=== PATIENT | male | born 1985 | race Caucasian/White ===

== ENCOUNTER 2018-07-09 15:16 | Emergency (ER) | payer MEDICAID ==
[~2018-07-09] VITALS: Wt 77.2 kg
[~2018-07-09 15:16] MED LIST: IBUP-1542 PO; LORA-441 PO; LORA1TAB PO; NAPR-985 PO; TRAM50TA2 PO
[2018-07-09] MEDS ORDERED: SOD CHLORIDE 0.9% 500 ML IV STA (16:10)
[2018-07-09] MEDS ORDERED: KETOROLAC 15 MG INJ IV STA (16:10)
[2018-07-09] MEDS ORDERED: ENALAPRILAT 1.25 MG INJ IV ONE (16:30)
[2018-07-09] MEDS ORDERED: IBUP-1542 PO (17:07)
[2018-07-09] MEDS ORDERED: HYDR25TA6 PO (17:10)
--- NOTE | 2018-07-09 17:19 | ERD ---
ER Documentation Chief Complaint Chief Complaint palpitations and cp HPI 32-year-old man presents with intermittent palpitations and sharp nonexertional nonradiating chest pain beginning this morning. Last for a few seconds intermit tently all morning and afternoon. He denies cough, no fevers or chills, no shortness of breath, no dizziness or loss of consciousness, no nausea. Patient denies history of hypertension or other medical conditions ROS All systems reviewed and are negative except as per history of present illness. Medications Home Meds Active Scripts Hydrochlorothiazide* (Hydrochlorothiazide*) 25 Mg Tab, 25 MG PO DAILY, #30 TAB Prov:PRABHA CHAND MD 07/09/18 Ibuprofen* (Motrin*) 600 Mg Tab, 600 MG PO Q8 PRN for PAIN AND/OR INFLAMMATION, #30 TAB Prov:PRABHA CHAND MD 07/09/18 Naproxen* (Naprosyn*) 500 Mg Tablet, 500 MG PO BID PRN for PAIN AND/OR INFLAMMATION, #30 TAB Prov:COLLIN CHRISTIANSON PA-C 04/26/16 Lorazepam* (Ativan*) 0.5 Mg Tablet, 0.5 MG PO Q8, #10 TAB Prov:COURT LICEA 03/31/16 Tramadol HCl (Tramadol HCl) 50 Mg Tablet, 50 MG PO Q6 PRN for SEVERE PAIN LEVEL 7-10, #20 TAB Prov:ISABELA CROUCH NP 03/08/16 Ibuprofen* (Motrin*) 600 Mg Tab, 600 MG PO Q6H PRN for PAIN AND OR ELEVATED TEMP, #30 TAB Prov:SELINA PETERS PA-C 02/26/16 Lorazepam* (Lorazepam*) 1 Mg Tablet, 1 MG PO Q8, #10 TAB Prov:ALBA DUBON PA-C 01/05/16 Allergies Allergies: Coded Allergies: No Known Allergy (Unverified , 12/22/15) PMhx/Soc Anxiety Medical and Surgical Hx: pt denies Medical Hx, pt denies Surgical Hx History of Surgery: No Anesthesia Reaction: No Hx Neurological Disorder: No Hx Respiratory Disorders: No Hx Cardiac Disorders: No Hx Psychiatric Problems: No Hx Miscellaneous Medical Probl: No Hx Alcohol Use: Yes (SOCIAL ) Hx Substance Use: No Hx Tobacco Use: No Smoking Status: Never smoker FmHx Family History: No diabetes Physical Exam Vitals Vital Signs Date Temp Pulse Resp B/P (MAP) Pulse Ox O2 O2 Flow FiO2 Time Delivery Rate 07/09/18 97.7 112 20 158/96 98 15:18 (116) Physical Exam Const: No acute distress, anxious, afebrile Head: Atraumatic Eyes: Normal Conjunctiva ENT: Normal External Ears, Nose and Mouth. Neck: Full range of motion. No meningismus. Resp: Clear to auscultation bilaterally Cardio: Tachycardic and regular Abd: Soft, non tender, non distended. Skin: No petechiae or rashes Back: No midline or flank tenderness Ext: No cyanosis, or edema Neur: Awake and alert x3, no focal deficits or facial asymmetry, moving all extremities Psych: Appears anxious Result Diagram: 07/09/18 1625 07/09/18 1625 Results 24 hrs Laboratory Tests Test 07/09/18 16:25 White Blood Count 8.2 10^3/ul Red Blood Count 5.15 10^6/ul Hemoglobin 15.9 g/dl Hematocrit 46.4 % Mean Corpuscular Volume 90.1 fl Mean Corpuscular Hemoglobin 30.9 pg Mean Corpuscular Hemoglobin Concent 34.3 g/dl Red Cell Distribution Width 11.6 % Platelet Count 216 10^3/UL Mean Platelet Volume 10.6 fl Immature Granulocytes % 0.400 % Neutrophils % 66.8 % Lymphocytes % 19.6 % Monocytes % 11.6 % Eosinophils % 1.1 % Basophils % 0.5 % Nucleated Red Blood Cells % 0.0 /100WBC Immature Granulocytes # 0.030 10^3/ul Neutrophils # 5.5 10^3/ul Lymphocytes # 1.6 10^3/ul Monocytes # 1.0 10^3/ul Eosinophils # 0.1 10^3/ul Basophils # 0.0 10^3/ul Nucleated Red Blood Cells # 0.0 10^3/ul Sodium Level 144 mmol/L Potassium Level 4.4 mmol/L Chloride Level 102 mmol/L Carbon Dioxide Level 29 mmol/L Anion Gap 13 Blood Urea Nitrogen 15 mg/dl Creatinine 0.85 mg/dl Est Glomerular Filtrat Rate mL/min > 60 mL/min Glucose Level 109 mg/dl Calcium Level 9.9 mg/dl Total Bilirubin 0.1 mg/dl Direct Bilirubin 0.00 mg/dl Indirect Bilirubin 0.1 mg/dl Aspartate Amino Transf (AST/SGOT) 66 IU/L Alanine Aminotransferase (ALT/SGPT) 111 IU/L Alkaline Phosphatase 71 IU/L Troponin I < 0.012 ng/ml Total Protein 8.3 g/dl Albumin 4.9 g/dl Globulin 3.40 g/dl Albumin/Globulin Ratio 1.44 Lipase 106 U/L Current Medications Medications Dose Sig/Sasha Start Time Status Last (Trade) Ordered Route PRN Stop Time Admin Dose Reason Admin Sodium 500 ml @ Q1H STAT 07/09/18 DC 07/09/18 Chloride 500 mls/hr IV 16:10 07/09/18 16:24 17:09 Ketorolac 15 mg ONCE STAT 07/09/18 DC 07/09/18 Tromethamine IV 16:10 07/09/18 16:24 (Toradol) 16:12 Enalaprilat 1.25 mg ONCE ONCE 07/09/18 DC 07/09/18 (Vasotec Iv) IV 16:30 07/09/18 16:24 16:31 Procedures/MDM IV line was established patient was placed on school lunch monitor rhythm strip revealed a sinus tachycardia at 110 bpm with upright P and T waves. Patient was afebrile Chest X-ray 1V Interpreted by me: Soft Tissue: No acute abnormalities Bones: No acute abnormalities Mediastinum/Cardiac Silhouette/Lungs: No acute abnormalities I administered 500 cc normal saline IV, Toradol 15 mg IV x1, and enalapril 1.25 mg IV x1 for hypertension. After antihypertensive medication patient's systolic dropped about 30 points and diastolic pressure fell about 15 points. Patient's discomfort resolved c ompletely. EKG performed, read by me revealed a sinus tachycardia at 105 bpm, right axis, narrow QRS complex, no concerning ST elevations or depressions noted. CBC and electrolytes are normal, liver function tests were normal, troponin was negative Differential diagnoses considered, included but not limited to acute coronary syndrome, pulmonary embolism, aortic dissection, abdominal aortic aneurysm, sepsis, stroke, meningitis, encephalitis, pneumonia, appendicitis, cholecystitis, bowel obstruction, pyelonephritis, nephrolithiasis, cystitis, as well as metabolic, hematologic, and electrolyte abnormalities. As well as abscess, cellulitis, fractures, and dislocations. Patient feels much better at this time, and vital signs are normal, symptoms have improved. I did give strict instructions to return to the ED if symptoms continue or worsen, patient will otherwise follow-up with primary care physician. Patient understood instructions and agreed to plan. Disclaimer: Inadvertent spelling and grammatical errors are likely due to EHR/dictation software use and do not reflect on the overall quality of patient care. Also, please note that the electronic time recorded on this note does not necessarily reflect the actual time of the patient encounter. Departure Diagnosis: Primary Impression: Palpitations Additional Impressions: Anxiety reaction Hypertension Hypertension type: essential hypertension Qualified Codes: I10 - Essential (primary) hypertension Chest pain Chest pain type: unspecified Qualified Codes: R07.9 - Chest pain, unspecified Condition: Good Patient Instructions: Chest Pain, Uncertain Cause, Hypertension, New (Begin Treatment), Palpitations PRABHA CHAND MD Jul 09, 2018 17:19
[2018-07-09 17:27] VITALS: BP 133/94; PULSE 82; RESP 18
== END 2018-07-09 17:28 | disposition home or self-care (01) ==
LOC: E/R 15:16
DX: R00.2 Palpitations (principal); F41.9 Anxiety disorder, unspecified; I10 Essential (primary) hypertension
CPT/HCPCS: 36415; 71045; 80053; 83690; 84484; 85025; 93005; 96374; 96375; J1885; J7040; Z7502; Z7610

== ENCOUNTER 2018-12-03 08:21 | Emergency (ER) | payer MEDICAID ==
[~2018-12-03] VITALS: Ht 170.2 cm; Wt 78.0 kg
[~2018-12-03 08:21] MED LIST changes: +HYDR25TA6 PO
[2018-12-03 08:23] VITALS: BP 150/76; PULSE 78; RESP 18; Ht 170.2 cm; Wt 78.0 kg
--- NOTE | 2018-12-03 09:16 | ERD ---
ER Documentation Chief Complaint Chief Complaint cwp since yesterday, pain changes with movement and breathing HPI 33-year-old male, previously healthy, presents to the emergency department, complaining of acute onset of sharp retrosternal pain that started yesterday after a heavy lunch and drinking 1 beer. The patient reports history of previous episodes related with ingestion of spicy food. He denies palpitations, no shortness of breath, no dizziness, no leg edema, no personal or family history of heart disease. ROS All systems reviewed and are negative except as per history of present illness. Medications Home Meds Active Scripts Acetaminophen* (Tylenol*) 325 Mg Tablet, 2 TAB PO Q6 PRN for PAIN AND OR ELEVATED TEMP, #20 TAB Prov:DWAYNE RODRIGUEZ MD 12/03/18 Ranitidine Hcl* (Zantac*) 150 Mg Tablet, 150 MG PO BID PRN for EPIGASTRIC PAIN, #20 TAB Prov:DWAYNE RODRIGUEZ MD 12/03/18 Hydrochlorothiazide* (Hydrochlorothiazide*) 25 Mg Tab, 25 MG PO DAILY, #30 TAB Prov:PRABHA CHAND MD 07/09/18 Ibuprofen* (Motrin*) 600 Mg Tab, 600 MG PO Q8 PRN for PAIN AND/OR INFLAMMATION, #30 TAB Prov:PRABHA CHAND MD 07/09/18 Naproxen* (Naprosyn*) 500 Mg Tablet, 500 MG PO BID PRN for PAIN AND/OR INFLAMMATION, #30 TAB Prov:COLLIN CHRISTIANSON PA-C 04/26/16 Lorazepam* (Ativan*) 0.5 Mg Tablet, 0.5 MG PO Q8, #10 TAB Prov:COURT LICEA 03/31/16 Tramadol HCl (Tramadol HCl) 50 Mg Tablet, 50 MG PO Q6 PRN for SEVERE PAIN LEVEL 7-10, #20 TAB Prov:ISABELA CROUCH NP 03/08/16 Ibuprofen* (Motrin*) 600 Mg Tab, 600 MG PO Q6H PRN for PAIN AND OR ELEVATED TEMP, #30 TAB Prov:SELINA PETERS PA-C 02/26/16 Lorazepam* (Lorazepam*) 1 Mg Tablet, 1 MG PO Q8, #10 TAB Prov:ALBA DUBON PA-C 01/05/16 Allergies Allergies: Coded Allergies: No Known Allergy (Unverified , 12/22/15) PMhx/Soc History of Surgery: No Anesthesia Reaction: No Hx Neurological Disorder: No Hx Respiratory Disorders: No Hx Cardiac Disorders: No Hx Psychiatric Problems: No Hx Miscellaneous Medical Probl: No Hx Alcohol Use: Yes (SOCIAL ) Hx Substance Use: No Hx Tobacco Use: No Smoking Status: Never smoker Physical Exam Vitals Vital Signs Date Temp Pulse Resp B/P (MAP) Pulse Ox O2 O2 Flow FiO2 Time Delivery Rate 12/03/18 98.1 78 18 150/76 99 08:23 (100) Physical Exam Const: No acute distress Head: Atraumatic Eyes: Normal Conjunctiva ENT: Normal External Ears, Nose and Mouth. Neck: Full range of motion. No meningismus. Resp: Clear to auscultation bilaterally Cardio: Regular rate and rhythm, no murmurs Abd: Soft, non tender, non distended. Normal bowel sounds Skin: No petechiae or rashes Back: No midline or flank tenderness Ext: No cyanosis, or edema Neur: Awake and alert Psych: Normal Mood and Affect Results 24 hrs Current Medications Medications Dose Sig/Sasha Start Time Status Last (Trade) Ordered Route PRN Stop Time Admin Dose Reason Admin Lorazepam 0.5 mg ONCE ONCE 12/03/18 DC 12/03/18 (Ativan) PO 09:30 09:30 12/03/18 09:31 Famotidine 20 mg ONCE ONCE 12/03/18 DC 12/03/18 (Pepcid) PO 09:30 09:30 12/03/18 09:31 40 ml ONCE ONCE 12/03/18 DC 12/03/18 Miscellaneous PO 09:30 09:30 Medication 12/03/18 09:31 (Gi Cocktail (2)) Patient: HORACE GRIFFITH : 1985 Age: 33 Sex: M MR #: [id number] DOS: 12/03/18913 Ordering MD: DWAYNE RODRIGUEZ MD Location: [facility] Room/Bed: PROCEDURE: XR Chest. CLINICAL INDICATION: Pain TECHNIQUE: PA and Lateral views of the chest were obtained. COMPARISON: Chest 03/31/2016 FINDINGS: Cardiomediastinal silhouette is normal. Pulmonary vasculature is normal. Lungs and costophrenic angles are clear. Bones soft tissues are unremarkable. IMPRESSION: No evidence of acute cardiopulmonary disease. RPTAT:AAJJ Procedures/MDM Vital signs stable. Differential diagnosis include but not limited to: URI, PNA, chostochondritis, GERD, musculoskeletal injury, less likely PE, pericarditis, endocarditis. Pertinent Data: 12 Lead ECG: Sinus rhythm, no ST changes, normal T wave, normal intervals Radiology: Chest x-rays: Normal Physical examination and clinical presentation consistent most likely with atypical chest pain most likely secondary to GERD. During the ED course the patient remained stable, no new complaints. Results and clinical impression discussed with patient who agrees with management. The patient is stable to be treated outpatient and will be discharged home with a Rx for ibuprofen; some side effects of prescribed medications (headache, rash, nausea, vomiting, diarrhea, drowsiness, habitu ation, bleeding, hypertension, interactions with other medications) were reviewed. The patient was informed that the evaluation in the emergency department has been done to rule out an acute emergency, therefore, chronic conditions like malignancy or autoimmune diseases have not been evaluated; therefore, the patient was instructed to follow up with the primary care provider in the next 48h. If symptoms persist, worsen or new symptoms develop, then patient should return to the ED immediately. Instructions explained and given directly by me to the patient with acknowledgment and demonstrated understanding. Disclaimer: Inadvertent spelling and grammatical errors are likely due to EHR/dictation software use and do not reflect on the overall quality of patient care. Also, please note that the electronic time recorded on this note does not necessarily reflect the actual time of the patient encounter. Departure Diagnosis: Primary Impression: Atypical chest pain Additional Impression: GERD (gastroesophageal reflux disease) Condition: Stable Additional Instructions: Muchas [place] por [facility] para [place] servicio. Esperamos que en [place] visita a la job de emergencia [place] problema medico haya sido solucionado y que se sienta mucho mejor. Para estar seguros que [place] mejoria sigue en proceso, le pedimos el favor de hacer chula mohsen de seguimiento medico con [place] doctor primario en los proximos 2-4 dumont. Lleve con usted estos documentos y las medicinas recetadas. Si elida sintomas empeoran, NO SE ESPERE, por favor regrese a job de emergencia INMEDIATAMENTE. En lizy que usted no tenga un mdico de atencin primaria: Llame al mdico o clnica comunitaria de referencia que aparece abajo carine las horas de consultorio para hacer chula mohsen para que le vean. CLINICAS: [facility] [id number] [facility] [id number] [facility] [phone] [facility] [phone] [facility] [phone] [address] [facility] [phone] DWAYNE CORDERO MD December 03, 2018 09:16
[2018-12-03] MEDS ORDERED: LIDOCAINE/MYLANTA 40 ML BTL PO ONE (09:30)
[2018-12-03] MEDS ORDERED: FAMOTIDINE 20 MG TAB PO ONE (09:30)
[2018-12-03] MEDS ORDERED: LORAZEPAM 0.5 MG TAB PO ONE (09:30)
[2018-12-03] MEDS ORDERED: ACET325T33 PO (09:48)
[2018-12-03] MEDS ORDERED: RANI150T35 PO (09:48)
== END 2018-12-03 09:55 | disposition home or self-care (01) ==
LOC: FTE 08:21
DX: K21.9 Gastro-esophageal reflux disease without esophagitis (principal)
CPT/HCPCS: 71046; 93005; Z7502; Z7610